=== PATIENT | female | born 1960 | race Caucasian/White ===

== ENCOUNTER → 2017-06-06 | Outpatient (CLI) | payer OTHER ==
[2017-06-06 10:55] LABS: ADD MAN DIFF? NO
[2017-06-06 11:23] LABS: ANION GAP 9 (6-14); BLOOD UREA NITROGEN 13 mg/dL (7-20); CARBON DIOXIDE 28 mmol/L (21-32); CHLORIDE 96 mmol/L (98-107); CHOLESTEROL 248 mg/dL (0-200); CHOLESTEROL/HDL RATIO 7.8; CREATININE 0.7 mg/dL (0.6-1.0); GFR 86.2; GLUCOSE 280 mg/dL (70-99); HDLC 32 mg/dL (40-60); LDLC 172 mg/dL (0-100); NON-HDL CHOLESTEROL 216 mg/dL (0-129); POTASSIUM 3.3 mmol/L (3.5-5.1); SODIUM 133 mmol/L (136-145); TRIGLYCERIDES 219 mg/dL (0-150); URIC ACID 3.8 mg/dL (2.6-6.0); VLDLC 44 mg/dL (0-40)
[2017-06-06 11:25] LABS: BASO # 0.1 x10^3/uL (0.0-0.2); BASO % 1 % (0-3); EOS # 0.1 x10^3/uL (0.0-0.7); EOS % 1 % (0-3); HEMATOCRIT 40.7 % (36.0-47.0); HEMOGLOBIN 13.9 g/dL (12.0-15.5); LYMPH # 2.3 x10^3/uL (1.0-4.8); LYMPH % 29 % (24-48); MEAN CORPUSCULAR HEMOGLOBIN 30 pg (25-35); MEAN CORPUSCULAR HGB CONC 34 g/dL (31-37); MEAN CORPUSCULAR VOLUME 86 fL (79-100); MONO # 0.5 x10^3/uL (0.0-1.1); MONO % 6 % (0-9); NEUT % 63 % (31-73); PLATELET COUNT 326 x10^3/uL (140-400); RED BLOOD COUNT 4.71 x10^6/uL (3.50-5.40); RED CELL DISTRIBUTION WIDTH 13.2 % (11.5-14.5); WHITE BLOOD COUNT 7.9 x10^3/uL (4.0-11.0)
[2017-06-06 11:30] LABS: THYROID STIM HORMONE (TSH) 2.767 uIU/mL (0.358-3.74)
[2017-06-06 11:31] LABS: BILIRUBIN,URINE NEGATIVE (NEG); CLARITY,URINE CLEAR; GLUCOSE,URINE 500 mg/dL (NEG); NITRITE,URINE NEGATIVE (NEG); PROTEIN,URINE NEGATIVE (NEG-TRACE); UROBILINOGEN,URINE 0.2 mg/dL (0.2 mg/dL)
[2017-06-06 11:46] LABS: BACTERIA,URINE FEW /HPF (0-FEW); COLOR,URINE COLORLESS; RBC,URINE RARE /HPF (0-2); SQUAMOUS EPITHELIAL CELL,UR FEW /LPF; WBC,URINE RARE /HPF (0-4)
== END | disposition home or self-care (01) ==
LOC: LAB 10:45
DX: I10 Essential (primary) hypertension (principal)
CPT/HCPCS: 36415; 80048; 80061; 81001; 84443; 84550; 85025

== ENCOUNTER → 2018-03-20 | Outpatient (CLI) | payer OTHER ==
--- NOTE | 2018-03-23 17:36 | RAD ---
DATE: 03/20/2018 EXAM: MAMMO ABDI SCREENING BILATERAL HISTORY: Benign left breast biopsy. Routine screening. COMPARISON: 05/31/2010, 05/29/2009 screening mammographic exams This study was interpreted with the benefit of Computerized Aided Detection (CAD). Breast Density: SCATTERED The breast parenchyma shows scattered fibroglandular densities. Breast parenchyma level B. FINDINGS: Minimal motion limits the left MLO view. Benign calcifications are present bilaterally. Biopsy clip marker involves the upper left breast. No masses or distortion. No suspicious calcification grouping. IMPRESSION: Benign findings. BI-RADS CATEGORY: 2 BENIGN FINDING(S) RECOMMENDED FOLLOW-UP: 12M 12 MONTH FOLLOW-UP PQRS compliance statement: Patient information was entered into a reminder system with a target due date in one year for the next mammogram. Mammography is a sensitive method for finding small breast cancers, but it does not detect them all and is not a substitute for careful clinical examination. A negative mammogram does not negate a clinically suspicious finding and should not result in delay in biopsying a clinically suspicious abnormality. "Our facility is accredited by the [employer] Mammography Program."
== END | disposition home or self-care (01) ==
LOC: MAMMO 15:31
PROVIDERS: ATTEND Family Medicine
DX: Z12.31 Encounter for screening mammogram for malignant neoplasm of breast (principal)
CPT/HCPCS: 77063; 77067

== ENCOUNTER → 2018-05-15 | Day surgery (SDC) | payer OTHER ==
[~2018-05-15] MED LIST: ATOR20TA58 PO; GLIM1TAB PO; IV RINGERS,LACTATED 1000ML 1,000 ML IV SCH; LIDOCAINE 2% PF 5 ML VIAL. ONE; LISI10TA2 PO; PROPOFOL 20 ML IV ONE; TRIA1TAB5 PO
[2018-05-15 10:50] VITALS: BP 112/75
--- NOTE | 2018-05-16 07:22 | CONS ---
DATE OF CONSULTATION: 05/15/2018 GASTROENTEROLOGY CONSULTATION REFERRING PHYSICIAN: Romie Rico MD REASON FOR CONSULTATION: Colorectal screening. HISTORY OF PRESENT ILLNESS: This is a 58-year-old female, whose past medical history is significant for tonsillectomy as well as hypertension, diabetes, hyperlipidemia, is seen for screening colon exam. Bowel habits are regular without diarrhea or constipation. Weight and appetite are stable. Family history is positive for colon cancer with grandmother in her late 70s. She has otherwise been in good health, has no additional complaints. PAST MEDICAL HISTORY: Hypertension, diabetes, hyperlipidemia, status post tonsillectomy. ALLERGIES: None. MEDICATIONS: Includes atorvastatin, Amaryl, lisinopril, triamterene and hydrochlorothiazide. SOCIAL HISTORY: She is a nonsmoker, social drinker. FAMILY HISTORY: As stated, colon cancer in grandmother in her late 70s. REVIEW OF SYSTEMS: Per records. PHYSICAL EXAMINATION: GENERAL: Reveals a well-nourished, well-developed female who is alert and cooperative, in no acute distress. VITAL SIGNS: Temperature 98.8, pulse 77, respiratory rate is 18. HEENT: Reveals normocephalic, atraumatic head. Pupils and extraocular muscles are not tested. Sclerae anicteric. NECK: Supple. LUNGS: Clear. CARDIOVASCULAR: Reveals S1, S2 without S3, S4 or appreciable murmur. ABDOMEN: Reveals soft abdomen, normal bowel sounds without appreciable hepatosplenomegaly. EXTREMITIES: Reveals no cyanosis, clubbing or edema. IMPRESSION: Colorectal screening is warranted at this time. Risks and benefits of procedure including risk of hemorrhage and perforation were discussed. The patient is willing to proceed. I would like to thank Dr. Rico for allowing us to consult and participate in her care. JAVID KONG MD DR: TIMBO/sultana JOB#: [id number] / [id number] ROMIE Jones MD
--- NOTE | 2018-05-18 16:07 | PATHOLOGY ---
[facility] Accession Number: [id number] . 01 Material submitted: . SIGMOID POLYP . 01 Clinical history: . Positive Cologuard test . 02 Diagnosis: Colon biopsy, sigmoid polyp: - Tubular adenoma. . ([facility]:mm; 05/18/2018) [facility]/05/18/2018 . 02 Comment: There is no high grade dysplasia or evidence of malignancy. . (M:mml; 05/18/2018) . 02 Electronically signed: . Caden Gabriel MD, Pathologist NPI- [id number] . 01 Gross description: . The specimen is received in formalin, labeled "Desirae Blanco, sigmoid polyp", is a lutz polypoid tissue measuring 0.3 x 0.2 x 0.1 cm, entirely submitted in A1. ([facility]; 05/15/2018) [facility] . 02 Pathologist provided ICD-10: D12.5 . 02 CPT . 686515 Specimen Comment: A courtesy copy of this report has been sent to Specimen Comment: [phone], . Specimen Comment: Report sent to / DR BUSCH Performed at: 01 [facility] [address], [place] [id number] MD Delgado Bennett MD Phone: [phone] Performed at: 02 [facility] [address] [place], [place] [id number] MD Caden Gabriel MD Phone: [phone]
== END | disposition home or self-care (01) ==
LOC: SURG 09:06
PROVIDERS: ATTEND Internal Medicine Gastroenterology
DX: D12.5 Benign neoplasm of sigmoid colon (principal); K64.0 First degree hemorrhoids; I10 Essential (primary) hypertension; E11.9 Type 2 diabetes mellitus without complications; E78.5 Hyperlipidemia, unspecified; Z98.890 Other specified postprocedural states; Z79.899 Other long term (current) drug therapy; Z72.89 Other problems related to lifestyle; Z80.0 Family history of malignant neoplasm of digestive organs; Z79.84 Long term (current) use of oral hypoglycemic drugs
CPT/HCPCS: 45380; 82962; 88305; J2001; J2704

== ENCOUNTER → 2020-05-03 | Outpatient (CLI) | payer OTHER ==
[2018-05-15 10:50] VITALS: BP 112/75
[~2020-05-03] MED LIST changes: -IV RINGERS,LACTATED 1000ML 1,000 ML IV SCH; -LIDOCAINE 2% PF 5 ML VIAL. ONE; +LISI10TA16 PO; -LISI10TA2 PO; -PROPOFOL 20 ML IV ONE
[2020-05-03 10:38] LABS: BASO # 0.1 x10^3/uL (0.0-0.2); BASO % 1 % (0-3); EOS # 0.1 x10^3/uL (0.0-0.7); EOS % 2 % (0-3); LYMPH # 1.8 x10^3/uL (1.0-4.8); LYMPH % 26 % (24-48); MEAN CORPUSCULAR HEMOGLOBIN 30 pg (25-35); MEAN CORPUSCULAR HGB CONC 35 g/dL (31-37); MEAN CORPUSCULAR VOLUME 85 fL (79-100); MONO # 0.5 x10^3/uL (0.0-1.1); MONO % 8 % (0-9); NEUT # 4.4 x10^3/uL (1.8-7.7); NEUT % 64 % (31-73); PLATELET COUNT 300 x10^3/uL (140-400); RED BLOOD COUNT 4.72 x10^6/uL (3.50-5.40); RED CELL DISTRIBUTION WIDTH 13.6 % (11.5-14.5); WHITE BLOOD COUNT 6.9 x10^3/uL (4.0-11.0)
[2020-05-03 10:45] LABS: ALBUMIN 4.1 g/dL (3.4-5.0); ALBUMIN/GLOBULIN RATIO 1.2 (1.0-1.7); CALCIUM 9.5 mg/dL (8.5-10.1); CHOLESTEROL/HDL RATIO 7.5; CREATININE 0.7 mg/dL (0.6-1.0); GFR 85.4; POTASSIUM 3.6 mmol/L (3.5-5.1); TOTAL BILIRUBIN 0.4 mg/dL (0.2-1.0); TOTAL PROTEIN 7.5 g/dL (6.4-8.2)
[2020-05-03 10:58] LABS: FREE T4 1.06 ng/dL (0.76-1.46); THYROID STIM HORMONE (TSH) 2.366 uIU/mL (0.358-3.74)
--- NOTE | 2020-05-03 13:26 | RAD ---
PA and lateral chest x-ray without comparison for shortness of breath. FINDINGS: The lungs are clear. Cardiomediastinum is grossly unremarkable. No significant soft tissue or osseous abnormalities. IMPRESSION: 1. Normal chest x-ray. Electronically signed by: Simeon Garcia MD (05/03/2020 1:24 PM) [id number]
== END ==
LOC: RAD 09:51
PROVIDERS: ATTEND Nurse Practitioner Gerontology
DX: I10 Essential (primary) hypertension (principal); R06.02 Shortness of breath
CPT/HCPCS: 36415; 71046; 80053; 80061; 83721; 84439; 84443; 85025

== ENCOUNTER → 2020-05-19 | Outpatient (CLI) | payer OTHER ==
[2020-05-19] VITALS (10 sets, daily range): BP systolic 102–129; BP diastolic 55–85
[~2020-05-19] VITALS: Ht 162.6 cm; Wt 83.9 kg
[~2020-05-19] MED LIST changes: +ASPI-886 PO; +ATOR40TA PO; +HEPARIN for IV BOLUS 10,000 UNIT/10 ML VIAL. IART ONE; +HEPARIN for IV BOLUS 10,000 UNIT/10 ML VIAL. ONE; +IODIXANOL 320 MG/ML 100 ML VIAL. IART ONE; +IODIXANOL 320 MG/ML 100 ML VIAL. ONE; +IV 1/2 NORMAL SALINE 1,000 ML IV SCH; +LIDOCAINE 1% PF 2 ML VIAL. INJ ONE; +LIDOCAINE 1% PF 2 ML VIAL. ONE; +METO25TA4 PO; +MIDAZOLAM HCL/PF 2 MG/2 ML VIAL. IV ONE; +MIDAZOLAM HCL/PF 2 MG/2 ML VIAL. ONE; +NITR0.4T22 SL; +NITROGLYCERIN 200 MCG/2 ML SYRINGE FOR CATH/VASC LAB. IART ONE; +NITROGLYCERIN 200 MCG/2 ML SYRINGE FOR CATH/VASC LAB. ONE; +VERAPAMIL 5 MG/2 ML VIAL. IART ONE; +VERAPAMIL 5 MG/2 ML VIAL. ONE; +fentaNYL PF VIAL 100 MCG/2 ML VIAL IV ONE; +fentaNYL PF VIAL 100 MCG/2 ML VIAL ONE
[2020-05-19 09:19] LABS: HEMATOCRIT 39.4 % (36.0-47.0); HEMOGLOBIN 13.8 g/dL (12.0-15.5); RED BLOOD COUNT 4.62 x10^6/uL (3.50-5.40); RED CELL DISTRIBUTION WIDTH 13.7 % (11.5-14.5); WHITE BLOOD COUNT 7.7 x10^3/uL (4.0-11.0)
[2020-05-19 09:27] LABS: CALCIUM 9.1 mg/dL (8.5-10.1); CREATININE 0.7 mg/dL (0.6-1.0); GFR 85.4; POTASSIUM 3.3 mmol/L (3.5-5.1)
[2020-05-19 09:28] LABS: PROTHROMBIN TIME PATIENT 12.4 SEC (11.7-14.0)
--- NOTE | 2020-05-19 12:28 | PDOC ---
MODERATE SEDATION ASSESSMENT RISKS/ALTERNATIVES Risks/Alternatives Risks and alternatives of this type of sedation and procedure discussed with: RISK/ALTERNATIVES: Patient H & P ON CHART H & P H & P on chart and reviewed for co-morbid conditions and appropriate labs. H&P ON CHART: Yes STATUS PREG STATUS ASSESSED: N/A MEDS/ALLERGIES REVIEWED Meds/Allergies Reviewed Medications and Allergies including time and route of recently administered narcotics and sedatives. MEDS/ALLERGIES REVIEWED: Yes ASA RATING ASA RATING: II AIRWAY ASSESSMENT Airway Assessment Airway patency, oral function limitations, presence of caps, crowns, dentures, partials, and ability to extend neck assessed. AIRWAY ASSESSMENT: Yes MALLAMPATI SCORE MALLAMPATI SCORE: II PRE-SEDATION ASSESSMENT PRE-SEDATION ASSESSMENT: Yes DEBRA RODRIGUEZ MD May 19, 2020 12:28
--- NOTE | 2020-05-19 12:49 | CARD ---
MR#: [id number] Date of Study: 05/19/2020 Ordering Physician: DEBRA CORTEZ, Referring Physician: DEBRA CORTEZ Tech: RT Santiago(R) APPROVED REPORT Technologist: Luciana Valencia RT(R) Nurse: Susan Singh RN Procedure(s) performed: Left heart catheterization, selective coronary angiography and left ventricul ography via right transradial approach Sedation Time: 30 Minutes Fluoro Time: 7.2 Minutes Contrast: 93 mL Visipaque 320 Dose: 42 Gycm2 INDICATION The indication(s) include : unstable angina . [facility] Clinical Frailty Scale [facility] Clinical Frailty Scale: Managing Well Heart Failure Heart Failure: No CASE TECHNIQUE IV conscious sedation was used throughout procedure with appropriate monitoring and was performed in the presence of a registered nurse who was an independent trained observer other than the physician p erforming the procedure. During this case, Fluoroscopy and low osmolar contrast were used for imaging . Specimen(s) Removed: No Estimated Blood loss: 10 cc's. PROCEDURE NARRATIVE After explaining the risks, benefits and alternative options, informed consent was obtained from sobeida ent. Patient was brought to the cardiac Ribbon Cleaner and right wrist was prepped and draped in the usual fashion after confirming a positive modified Ronnie's test. Arterial access was obtained in the righ t radial artery and a 6 Namibian sheath was inserted. 6 [place] Morgan and 6 [place]ian JL 3.5 catheters we re used to perform selective angiography of the right and left coronary arteries. 6 [place] pigtail c atheter was used to perform left ventriculography. Patient tolerated the procedure well. Hemostasis was achieved using TR band. There were no immediate complications. The following findings were not ed. FINDINGS 1. Hemodynamics: Left ventricular end-diastolic pressure of 12 mmHg. No pullback gradient across th e aortic valve. 2. Left ventriculography: Normal left ventricle systolic function with ejection fraction estimated at 65%. No significant mitral regurgitation seen. 3. Coronary angiography: a. The left main coronary artery arose from the left sinus of Valsalva, gave rise to the left anteri or descending and left circumflex arteries and showed 60 to 70% stenosis involving the ostial/proxima l segment with dampening of the waveform, EKG changes and chest pain each time the vessel was engaged with a catheter. b. The left anterior descending artery showed 90 to 95% stenosis involving the proximal segment and 70% stenosis involving the mid segment. The diagonal branch showed 50% stenosis in the proximal segm ent. c. The left circumflex artery was a large and codominant vessel did not show any significant stenosi s. d. The right coronary artery was a codominant vessel arising from the right sinus of Valsalva that s howed 50% stenosis involving the ostial segment. Conclusion 1. 60 to 70% stenosis of left main coronary artery, 90 to 95% stenosis of the left anterior descendi ng artery and 50% stenosis involving right coronary artery. 2. Normal left ventricular systolic function with ejection fraction estimated at 65%. Recommendations Cardiothoracic surgery team referral for possible coronary artery bypass surgery. Signed by : Debra Cortez, Electronically Approved : 05/19/2020 12:48:29
--- NOTE | 2020-05-19 14:27 | NUR ---
Discharge Note: YONNY QUIÑONES Discharge instructions and discharge home medications reviewed with Patient and a copy given. All questions have been answered and understanding verbalized. The following instructions and handouts were given: Moderate Sedation, Radial site care. Discontinued lines and drains: Rigth hand IV site dc'd and tip intact. Patient discharged to echo department with nuclear chemistry technician via wheelchair.
--- NOTE | 2020-05-19 15:46 | CARD ---
MR#: [id number] Date of Study: 05/19/2020 Ordering Physician: DEBRA RODRIGUEZ, Referring Physician: DEBRA RODRIGUEZ, Tech: Melina Moctezuma, [facility] APPROVED REPORT EXAM: Two-dimensional and M-mode echocardiogram with Doppler and color Doppler. Other Information Quality : AverageHR: 85bpm INDICATION Chest Pain 2D DIMENSIONS RVDd2.8 (2.9-3.5cm)Left Atrium(2D)3.0 (1.6-4.0cm) IVSd0.6 (0.7-1.1cm)Aortic Root(2D)2.3 (2.0-3.7cm) LVDd4.6 (3.9-5.9cm)LVOT Diameter2.0 (1.8-2.4cm) PWd0.7 (0.7-1.1cm)LVDs2.9 (2.5-4.0cm) FS (%) 35.3 %SV61.6 ml LVEF(%)64.8 (>50%) Aortic Valve AoV Peak Jesus.207.4cm/sAoV VTI33.4cm AO Peak GR.17.2mmHgLVOT Peak Jesus.124.7cm/s LVOT VTI 24.07cmAO Mean GR.9mmHg [place]OLA (VMAX)1.62se2DYG (VTI)2.19cm2 Mitral Valve MV E Lqtxmvro88.1cm/sMV DECEL FHHX775rs MV A Rwckivli52.0cm/sMV IVR28aa E/A Ratio1.1MVA (PHT)4.47cm2 TDI E/Lateral E'7.4E/Medial E'8.4 Pulmonary Valve PV Peak Tfgruucs324.4cm/sPV Peak Grad.4mmHg Tricuspid Valve TR P. Zohyyqjy047di/sRAP XNWBSHVD3nyZn TR Peak Gr.09clZgQMNL87teMv Pulmonary Vein S1 Dwtlgqte43.0cm/sD2 Szrwlchd25.5cm/s PVa [id number] LEFT VENTRICLE The left ventricle is normal size. There is normal left ventricular wall thickness. The left ventricu lar systolic function is normal and the ejection fraction is within normal range. The Ejection Fracti on is 50-55%. There is normal LV segmental wall motion. Transmitral Doppler flow pattern is Grade II- pseudonormal filling dynamics. RIGHT VENTRICLE The right ventricle is normal size. There is normal right ventricular wall thickness. The right ventr icular systolic function is normal. ATRIA The left atrium size is normal. The right atrium size is normal. The interatrial septum is intact wit h no evidence for an atrial septal defect or patent foramen ovale as noted on 2-D or Doppler imaging. AORTIC VALVE The aortic valve is calcified but opens well. Doppler and Color Flow revealed no significant aortic r egurgitation. There is no significant aortic valvular stenosis. Calculated aortic valve area is 2.25 cm2 with maximum pressure gradient of 21 mmHg and mean pressure gradient of 12 mmHg. MITRAL VALVE The mitral valve is normal in structure and function. There is no evidence of mitral valve prolapse. There is no mitral valve stenosis. Doppler and Color-flow revealed trace mitral regurgitation. TRICUSPID VALVE The tricuspid valve is normal in structure and function. Doppler and Color Flow revealed trace tricus pid regurgitation with an estimated PAP of 24 mmHg. There is no tricuspid valve stenosis. PULMONIC VALVE The pulmonic valve is not well visualized. Doppler and Color Flow revealed trace pulmonic valvular re gurgitation. There is no pulmonic valvular stenosis. GREAT VESSELS The aortic root is normal in size. The IVC is normal in size and collapses >50% with inspiration. PERICARDIAL EFFUSION There is no evidence of significant pericardial effusion. Critical Notification Critical Value: No <Conclusion> The left ventricular systolic function is normal and the ejection fraction is within normal range. Th e Ejection Fraction is 50-55%. There is normal LV segmental wall motion. The aortic valve is calcified with restricted leaflet motion. There is no significant aortic valvula r stenosis by doppler criteria. No significant pullback gradient by cardiac catheterization done herb ier today, therefore low suspicion for any significant aortic valve disease. Signed by : Eric Day, Electronically Approved : 05/19/2020 15:46:23
== END | disposition home or self-care (01) ==
LOC: CCL 08:33
PROVIDERS: ATTEND Internal Medicine Cardiovascular Disease
DX: I25.110 Atherosclerotic heart disease of native coronary artery with unstable angina pectoris (principal); I08.3 Combined rheumatic disorders of mitral, aortic and tricuspid valves; I10 Essential (primary) hypertension; E11.9 Type 2 diabetes mellitus without complications; E78.5 Hyperlipidemia, unspecified; Z20.822 Contact with and (suspected) exposure to COVID-19; Z79.82 Long term (current) use of aspirin; Z79.84 Long term (current) use of oral hypoglycemic drugs; Z82.49 Family history of ischemic heart disease and other diseases of the circulatory system; Z98.890 Other specified postprocedural states; Z79.899 Other long term (current) drug therapy; Z82.3 Family history of stroke
CPT/HCPCS: 36415; 80048; 85027; 85610; 87426; 93306; 93458; 99152; 99153; C1769; C1894; J1644; J2250; J3010; J3490; Q9967; U0003

== ENCOUNTER → 2020-12-01 | Outpatient (CLI) | payer OTHER ==
[2020-05-19 14:01] VITALS: BP 102/59
[~2020-12-01] MED LIST changes: -HEPARIN for IV BOLUS 10,000 UNIT/10 ML VIAL. IART ONE; -HEPARIN for IV BOLUS 10,000 UNIT/10 ML VIAL. ONE; -IODIXANOL 320 MG/ML 100 ML VIAL. IART ONE; -IODIXANOL 320 MG/ML 100 ML VIAL. ONE; -IV 1/2 NORMAL SALINE 1,000 ML IV SCH; -LIDOCAINE 1% PF 2 ML VIAL. INJ ONE; -LIDOCAINE 1% PF 2 ML VIAL. ONE; -MIDAZOLAM HCL/PF 2 MG/2 ML VIAL. IV ONE; -MIDAZOLAM HCL/PF 2 MG/2 ML VIAL. ONE; -NITROGLYCERIN 200 MCG/2 ML SYRINGE FOR CATH/VASC LAB. IART ONE; -NITROGLYCERIN 200 MCG/2 ML SYRINGE FOR CATH/VASC LAB. ONE; -VERAPAMIL 5 MG/2 ML VIAL. IART ONE; -VERAPAMIL 5 MG/2 ML VIAL. ONE; -fentaNYL PF VIAL 100 MCG/2 ML VIAL IV ONE; -fentaNYL PF VIAL 100 MCG/2 ML VIAL ONE
[2020-12-01 10:24] LABS: ALBUMIN 4.1 g/dL (3.4-5.0); ALBUMIN/GLOBULIN RATIO 1.4 (1.0-1.7); CALCIUM 9.3 mg/dL (8.5-10.1); CREATININE 0.8 mg/dL (0.6-1.0); GFR 73.2; POTASSIUM 4.7 mmol/L (3.5-5.1); TOTAL BILIRUBIN 0.3 mg/dL (0.2-1.0)
[2020-12-01 10:29] LABS: CHOLESTEROL/HDL RATIO 5.3
[2020-12-01 22:11] LABS: HEMOGLOBIN A1C 7.7 % (4.8-5.6)
== END ==
LOC: LAB 08:30
PROVIDERS: ATTEND Family Medicine
DX: E11.9 Type 2 diabetes mellitus without complications (principal); E78.5 Hyperlipidemia, unspecified
CPT/HCPCS: 36415; 80053; 80061; 83036

== ENCOUNTER → 2021-04-03 | Outpatient (CLI) | payer OTHER ==
[2020-05-19 14:01] VITALS: BP 102/59
[2021-04-03 09:06] LABS: ALBUMIN 3.8 g/dL (3.4-5.0); CALCIUM 9.4 mg/dL (8.5-10.1); CREATININE 0.8 mg/dL (0.6-1.0); GFR 72.9; POTASSIUM 3.4 mmol/L (3.5-5.1); TOTAL BILIRUBIN 0.4 mg/dL (0.2-1.0); TOTAL PROTEIN 7.8 g/dL (6.4-8.2)
[2021-04-03 09:09] LABS: CHOLESTEROL/HDL RATIO 3.2
[2021-04-04 07:32] LABS: HEMOGLOBIN A1C 7.7 % (4.8-5.6)
== END ==
LOC: LAB 07:51
PROVIDERS: ATTEND Family Medicine
DX: E11.9 Type 2 diabetes mellitus without complications (principal); E78.5 Hyperlipidemia, unspecified
CPT/HCPCS: 36415; 80053; 80061; 83036